=== PATIENT | female | born 1995 | race Caucasian/White ===

== ENCOUNTER 2017-06-17 06:20 | Inpatient (IN) | payer OTHER ==
[~2017-06-17] VITALS: Ht 152.4 cm; Wt 67.3 kg
[2017-06-17 06:45] VITALS: BP 115/80; PULSE 83; RESP 18
[2017-06-17 06:58] VITALS: Ht 152.4 cm; Wt 67.3 kg
[2017-06-17 07:33] LABS: ADD UMIC YES; UR ASCORBIC ACID NEGATIVE (NEGATIVE); UR BACTERIA FEW /HPF (NONE SEEN); UR BILIRUBIN (Dip) NEGATIVE (NEGATIVE); UR BLOOD (Dip) 2+ mg/dL (NEGATIVE); UR CLARITY CLEAR (CLEAR); UR COLOR STRAW (YELLOW); UR GLUCOSE (Dip) NEGATIVE (NEGATIVE); UR KETONES (Dip) NEGATIVE (NEGATIVE); UR LEUKOCYTE ESTERASE (Dip) 1+ Leu/ul (NEGATIVE); UR NITRITE (Dip) NEGATIVE (NEGATIVE); UR RBC 2 /HPF (0-5); UR SPECIFIC GRAVITY (Dip) 1.005 (1.003-1.030); UR SQUAMOUS EPITHELIAL CELL FEW /HPF (FEW); UR TOTAL PROTEIN (Dip) NEGATIVE (NEGATIVE); UR UROBILINOGEN (Dip) NEGATIVE (NEGATIVE)
--- NOTE | 2017-06-17 09:53 | RADRPT ---
PROCEDURE: US biophysical profile. CLINICAL INDICATION: Gestational diabetes. TECHNIQUE: Multiple sonographic images of the uterus were obtained. The images were revi ewed on a PACS workstation. COMPARISON: No prior studies are available for comparison. FINDINGS: There is a single live intrauterine gestation. heart rate is 137 beats per minute. The position is cephalic. The placenta is posterior grade 1 with no abruption or previa. The MARY is 6.4 cm. (Normal = 5-20 cm.) Breathing Movement: 2 Gross Body Movement: 2 Tone: 2 Qualitative Amniotic Fluid Volume: 2 TOTAL: 8 IMPRESSION: 1. The biophysical score is 8/8. RPTAT: QQ .Maynor Chin MD, MD Date Time Electronically viewed and signed by .Maynor Chin MD, on 06/17/2017 09:53 .R/
[2017-06-17] MEDS ORDERED: OXYTOCIN 30 UNITS/LR 500 ML IV SCH ×3 (10:30→11:30)
[2017-06-17] MEDS ORDERED: MISOPROSTOL 200 MCG TAB PR PRN (10:30)
[2017-06-17] MEDS ORDERED: CARBOPROST 250 MCG INJ IM PRN (10:30)
[2017-06-17] MEDS ORDERED: LIDOCAINE 1% (MPF) 30 ML INJ INJ PRN (10:30)
[2017-06-17] MEDS ORDERED: IBUPROFEN 600 MG TAB PO PRN (10:30)
[2017-06-17] MEDS ORDERED: METHYLERGONOVINE 0.2 MG INJ IM PRN (10:30)
[2017-06-17] MEDS ORDERED: BUTORPHANOL 2 MG INJ IV PRN (10:30)
[2017-06-17] MEDS ORDERED: OXYTOCIN 30 UNITS/LR 500 ML IV PRN (10:30)
[2017-06-17] MEDS: LACTATED RINGER'S 1,000 ML IV SCH ×3 (10:34→18:25)
[2017-06-17 10:51] LABS: BASOPHIL # 0.1 10^3/ul (0.0-0.1); BASOPHILS % 0.5 % (0.0-2.0); EOSINOPHILS # 0.1 10^3/ul (0.0-0.5); EOSINOPHILS % 0.5 % (0.0-7.0); HEMATOCRIT 36.3 % (37.0-47.0); HEMOGLOBIN 12.4 g/dl (12.0-16.0); LYMPHOCYTES # 2.4 10^3/ul (0.8-2.9); LYMPHOCYTES % 18.5 % (18.0-55.0); MEAN CORPUSCULAR HEMOGLOBIN 30.5 pg (29.0-33.0); MEAN CORPUSCULAR HGB CONC 34.2 g/dl (32.0-37.0); MEAN CORPUSCULAR VOLUME 89.4 fl (72.0-104.0); MEAN PLATELET VOLUME 10.5 fl (7.4-10.4); MONOCYTES % 7.4 % (0.0-13.0); NEUTROPHIL # 9.4 10^3/ul (1.6-7.5); NEUTROPHILS % 71.8 % (30.0-74.0); PLATELET COUNT 272 10^3/UL (140-415); RED BLOOD COUNT 4.06 10^6/ul (4.20-5.40)
[2017-06-17] MEDS ORDERED: LACTATED RINGER'S 1,000 ML IV PRN (11:00)
[2017-06-17 11:08] LABS: INR 0.96; PROTIME 12.8 Sec (12.2-14.2)
--- NOTE | 2017-06-17 12:04 | HP ---
Date/Time of Note Date/Time of Note DATE: 06/17/17 TIME: 11:51 OB - History Hx of Present Free Text/Dictation This is a 21 years old female EDC June 17, 2017 admitted to [facility] at 40 weeks gestation with mild contractions and low MARY her pelvic examination on admission cervix 1 cm dilated 80% effaced vertex at -2 station with intact membrane heart rate category 1 with moderate variability and 15 x 15 accelerations. Chief Complaint: Mild contraction low MARY Estimated Due Date: Jun 17, 2017 : 1 Para: 0 Spontaneous : 0 Therapeutic : 0 Care: Good Care Ultrasounds: Normal mid trimester US Obstetrical Complications: None Medical Complications: None Past Family/Social History * Past Medical, Surgical, Family and Obstetric Histories reviewed from chart. Rubella: immune RPR/VDRL: Negative GBS Status: Negative HBsAG: Negative OB Admission Exam Vital Signs Vital Signs Vital Signs Date Time Temp Pulse Resp B/P Pulse Ox O2 Delivery O2 Flow Rate FiO2 06/17/17 06:45 97.8 83 18 115/80 99 Physical Exam HEENT: WNL Heart: Rhythm Normal Lungs: Clear, Equal Abdomen: WNL Extremities: Normal Reflexes: Normal Cervical Dilatation: 1cm Effacement: Other (80%) Station: -2 Membranes: Intact Heart Rate: 130's Accelerations: Accelerations Present Decelerations: No Decelerations Varibility: Moderate Contractions on Admission: >10 Minutes Apart Intensity: Mild Last 72 hours Lab Results CBC & BMP 06/17/17 10:30 OB Assessment/Plan Reason for admission: other (Early labor low MARY) Plan: Other (Labor augmentation) Induction Method: per Pitocin Protocol Other plan: 21 years old admitted at 40 weeks gestation with mild contraction she has low MARY 3.5, pelvic examination her cervix is 1 cm dilated ,80% effaced ,vertex at -2 station, requires labor .augmentation with Pitocin IV infusion, this has been discussed with the patient, risks and complication has been explained and she is willing to go ahead with labor augmentation BOBBI CHRISTIANSON MD Jun 17, 2017 12:01
[2017-06-17] MEDS ORDERED: FENTAnyl 2MCG/ML-ROPIV 0.2% 100 ML ONE (17:08)
[2017-06-17] MEDS ORDERED: NALOXONE (0.4 MG/ML) INJ IV PRN (18:30)
[2017-06-17] MEDS ORDERED: DIPHENHYDRAMINE 50 MG INJ IV PRN (18:30)
[2017-06-17] MEDS ORDERED: ONDANSETRON 4 MG INJ IV PRN (18:30)
[2017-06-17] MEDS ORDERED: TRIMETHOBENZAMIDE 100 MG/ML VIAL IM PRN (18:30)
[2017-06-17] MEDS: FENTAnyl 2MCG/ML-ROPIV 0.2% 100 ML BAG EPI SCH (23:57)
[2017-06-18] MEDS: LACTATED RINGER'S 1,000 ML IV SCH (01:46)
[2017-06-18] MEDS ORDERED: AMPICILLIN 2 GM/NS (PMX) 100 ML ONE (02:41)
[2017-06-18] MEDS ORDERED: ACETAMINOPHEN 500 MG TAB ONE (02:42)
[2017-06-18] MEDS ORDERED: ACETAMINOPHEN 500 MG TAB PO ONE (02:44)
[2017-06-18] MEDS ORDERED: AMPICILLIN 2 GM/NS (PMX) 100 ML IVPB ONE (03:00)
[2017-06-18] MEDS ORDERED: NA PHOSPHATE/BIPHOS 133 ML ENEMA PR ONE (03:09)
--- NOTE | 2017-06-18 05:01 | QN ---
Documentation Comment called for temperature 101.5 with tachycardia cervix complete with forebag ARM clear position LOP manual rotation to OA tylenol 1000mg ampicillin 2gm DELFINA CASSIDY MD Jun 18, 2017 05:01
[2017-06-18] MEDS: FENTAnyl 2MCG/ML-ROPIV 0.2% 100 ML BAG EPI SCH (06:31)
[2017-06-18] MEDS ORDERED: AMPICILLIN 1 GM/NS (PMX) 50 ML ONE (07:07)
[2017-06-18] MEDS ORDERED: AMPICILLIN 1 GM/NS (PMX) 50 ML IVPB SCH (09:00)
--- NOTE | 2017-06-18 09:24 | LDN ---
Date/Time of Note Date/Time of Note DATE: 06/18/17 TIME: 09:16 Delivery Summary Normal spontaneous vaginal delivery of a baby boy from OA position shoulders delivered with no difficulty rest of the baby's body followed ,cord clamped after stopped pulsation placenta spontaneous expulsion inspected complete, patient sustained small first-degree perineal laceration repaired with 3-0 chromic catgut estimated blood loss 200 cc Weeks of Gestation 40 weeks Placenta Delivered: Spontaneously Meconium: Light Episiotomy: No Perineal laceration: 1 Laceration repair: Small first-degree perineal laceration repaired with 3-0 chromic catgut Anesthesia type: Local Sponge & Needle done & correct: Yes All needle counts correct: Yes Any foreign bodies felt in the: No Problems: Delivery Information Sex Infant Sex: male Apgars 1 Minute: 8 5 Minute: 9 Suctioning Nose & mouth suctioned at bonita: Yes Delee suction performed: No Umbilical Cord Umbilical cord with: 3 Vessels Cord presentations: no nuchal cord Cord Blood was obtained: Yes BOBBI CHRISTIANSON MD Jun 18, 2017 09:24
[2017-06-18 10:45] VITALS: BP 138/68; PULSE 86; RESP 17
[2017-06-18 11:22] VITALS: BP 132/87; PULSE 80; RESP 16
[2017-06-18] MEDS ORDERED: OXYCODONE/ASPIRIN (4.88/325) TAB PO PRN ×2 (11:30)
[2017-06-18] MEDS ORDERED: LANOLIN 7 GM TUBE TOP PRN (11:30)
[2017-06-18] MEDS ORDERED: HYDROCODONE/APAP (5/325) TAB PO PRN ×2 (11:30)
[2017-06-18] MEDS ORDERED: DIBUCAINE 1% 30 GM OINT PR PRN (11:30)
[2017-06-18] MEDS ORDERED: ACETAMINOPHEN 325 MG TAB PO PRN (11:30)
[2017-06-18] MEDS ORDERED: ONDANSETRON 4 MG INJ IV PRN (11:30)
[2017-06-18] MEDS ORDERED: BENZOCAINE 20% 56 ML SPRAY TOP PRN (11:30)
[2017-06-18] MEDS ORDERED: WITCH HAZEL/GLYCERIN PAD PR PRN (11:30)
[2017-06-18] MEDS: IBUPROFEN 600 MG TAB PO SCH ×2 (11:41→18:07)
[2017-06-18] MEDS: SENNA/DOCUSATE NA (8.6MG/50MG) TAB PO SCH ×2 (11:46→20:37)
[2017-06-18] MEDS: OXYTOCIN 30 UNITS/LR 500 ML IV SCH ×2 (13:00→18:06)
[2017-06-18 15:51] VITALS: BP 120/66; PULSE 80; RESP 14
[2017-06-18 19:40] VITALS: BP 117/68; PULSE 88; RESP 21
[2017-06-19] MEDS: IBUPROFEN 600 MG TAB PO SCH ×4 (00:17→17:45)
[2017-06-19 04:00] VITALS: BP 119/65; PULSE 74; RESP 20
[2017-06-19 08:50] VITALS: BP 118/59; PULSE 94; RESP 17
[2017-06-19] MEDS: SENNA/DOCUSATE NA (8.6MG/50MG) TAB PO SCH ×2 (09:22→21:41)
[2017-06-19 10:01] LABS: BASOPHIL # 0.1 10^3/ul (0.0-0.1); BASOPHILS % 0.3 % (0.0-2.0); EOSINOPHILS # 0.2 10^3/ul (0.0-0.5); EOSINOPHILS % 0.9 % (0.0-7.0); HEMATOCRIT 31.9 % (37.0-47.0); HEMOGLOBIN 10.7 g/dl (12.0-16.0); LYMPHOCYTES # 2.9 10^3/ul (0.8-2.9); MEAN CORPUSCULAR HEMOGLOBIN 30.4 pg (29.0-33.0); MEAN CORPUSCULAR HGB CONC 33.5 g/dl (32.0-37.0); MEAN CORPUSCULAR VOLUME 90.6 fl (72.0-104.0); MEAN PLATELET VOLUME 11.2 fl (7.4-10.4); MONOCYTE # 1.1 10^3/ul (0.3-0.9); MONOCYTES % 5.8 % (0.0-13.0); NEUTROPHIL # 14.8 10^3/ul (1.6-7.5); NEUTROPHILS % 77.1 % (30.0-74.0); PLATELET COUNT 269 10^3/UL (140-415); RED BLOOD COUNT 3.52 10^6/ul (4.20-5.40); RED CELL DISTRIBUTION WIDTH 14.4 % (11.5-14.5); WHITE BLOOD COUNT 19.2 10^3/ul (4.8-10.8)
--- NOTE | 2017-06-19 12:53 | PN ---
Date/Time of Note Date/Time of Note DATE: 06/19/17 TIME: 12:52 OB Subjective Subjective Subjective No complaints. OB Objective Objective Objective Gen: NAD Abd: FF OB Assessment/Plan Other Assessment: PPD1 Other plan: -continue routine care -anticipate discharge home tomorrow KARIME BAJWA Jun 19, 2017 12:53
[2017-06-19] MEDS: FERROUS SULFATE (EC) 325 MG TAB PO SCH ×2 (13:00→21:41)
[2017-06-19 16:00] VITALS: BP 123/70; PULSE 93; RESP 16
[2017-06-19] MEDS ORDERED: INFLUENZA VIRUS VACCINE 0.5 ML SYG IM* ONE (17:00)
[2017-06-19 20:00] VITALS: BP 116/70; PULSE 79; RESP 20
[2017-06-20] MEDS: IBUPROFEN 600 MG TAB PO SCH ×2 (00:16→05:58)
[2017-06-20 04:30] VITALS: BP 113/70; PULSE 77; RESP 19
[2017-06-20 07:50] VITALS: BP 101/61; PULSE 77; RESP 16
[2017-06-20] MEDS: FERROUS SULFATE (EC) 325 MG TAB PO SCH (08:56)
[2017-06-20] MEDS: SENNA/DOCUSATE NA (8.6MG/50MG) TAB PO SCH (08:56)
[2017-06-20] MEDS ORDERED: MEASLES,MUMPS,RUBELLA VACCINE INJ SC* ONE (09:00)
--- NOTE | 2017-06-20 11:45 | DS ---
Date/Time of Note Date/Time of Note DATE: 06/20/17 TIME: 11:43 Discharge Summary Admission/Discharge Info Admit Date/Time Jun 17, 2017 at 09:53 Discharge Date/Time June 20, 2017 at 1140 Discharge Diagnosis Was normal vaginal delivery day 2 Patient Condition: Good Procedures Normal vaginal delivery Hx of Present Illness Term Hospital Course Satisfactory uneventful Follow-up Plan Post instructions given recommended to make appointment to be seen at the clinic in 2 weeks Primary Care Provider BOBBI Wong MD Jun 20, 2017 11:45
== END 2017-06-20 15:23 | disposition home or self-care (01) | DRG 775 ==
LOC: L-D 06:20 → OBT 06:20 → L-D 09:53 → OBT 09:58 → PP1 06-18 10:34
PROVIDERS: ADMIT Obstetrics & Gynecology; ATTEND Obstetrics & Gynecology
PROC: 10E0XZZ Delivery of Products of Conception, External Approach (ICD-10-PCS; principal; 2017-06-18)
PROC: 0HQ9XZZ Repair Perineum Skin, External Approach (ICD-10-PCS; 2017-06-18)
DX: O70.0 First degree perineal laceration during delivery (principal); Z37.0 Single live birth; Z3A.40 40 weeks gestation of pregnancy
CPT/HCPCS: 62319; 76818; 81001; 84112; 85025; 85610; 85730; 86592; 86900; 86901; 90686; 99464; G0463; J0290; J0595; J2590; J3010; J7120